=== PATIENT | male | born 1950 | race Caucasian/White ===

== ENCOUNTER → 2024-01-16 08:54 | Outpatient (REF) | payer OTHER, SELFPAY | LOC: RCS 08:54 | PROVIDERS: ATTENDING PHYSICIAN Internal Medicine Cardiovascular Disease; FAMILY PHYSICIAN Family Medicine | DX: R00.2 Palpitations (principal); E11.9 Type 2 diabetes mellitus without complications; R06.09 Other forms of dyspnea | CPT/HCPCS: 93017; 93350 ==

== ENCOUNTER → 2024-03-20 08:06 | Outpatient (REF) | payer OTHER, SELFPAY | LOC: RCS 08:06 | PROVIDERS: ATTENDING PHYSICIAN Internal Medicine Cardiovascular Disease; FAMILY PHYSICIAN Family Medicine | DX: R00.2 Palpitations (principal); E11.9 Type 2 diabetes mellitus without complications; R06.09 Other forms of dyspnea | CPT/HCPCS: 93306 ==

== ENCOUNTER → 2025-03-05 07:04 | Outpatient (REF) | payer OTHER, SELFPAY | LOC: MRI 3T 07:04 | PROVIDERS: ATTENDING PHYSICIAN Physician Assistant Medical; FAMILY PHYSICIAN Family Medicine; REFERRING PHYSICIAN Orthopaedic Surgery | DX: M25.512 Pain in left shoulder (principal) | CPT/HCPCS: 73221 ==